=== PATIENT | female | born 1985 | race Caucasian/White ===

== ENCOUNTER 2018-11-27 12:28 | Emergency (ER) | payer MEDICAID, OTHER ==
[~2018-11-27] VITALS: Wt 109.0 kg
[2018-11-27 12:45] VITALS: BP 133/72; PULSE 89; RESP 16
[2018-11-27] MEDS ORDERED: GABA-528 PO (13:19)
--- NOTE | 2018-11-27 18:36 | ERD ---
ER Documentation Chief Complaint Chief Complaint VANG, hx migraines. needs gabapentin refill; takes 800mg TID HPI 33-year-old female patient with no significant past medical history presents to ED encounter for medication refill. Patient reports that she usually takes it for her migraine headaches. Denies any fever, chills, nausea, vomiting, diarrhea, neck stiffness. ROS All systems reviewed and are negative except as per history of present illness. Medications Home Meds Active Scripts Gabapentin* (Gabapentin*) 800 Mg Tablet, 800 MG PO TID, #21 TAB Prov:RICHARD FAJARDO PA-C 11/27/18 Allergies Allergies: Coded Allergies: No Known Allergy (Unverified , 07/21/14) PMhx/Soc Medical and Surgical Hx: pt denies Surgical Hx History of Surgery: No Anesthesia Reaction: No Hx Neurological Disorder: Yes (MIGRAINE HEADACHE) Hx Respiratory Disorders: No Hx Cardiac Disorders: No Hx Psychiatric Problems: No Hx Miscellaneous Medical Probl: No Hx Alcohol Use: No Hx Substance Use: No Hx Tobacco Use: No Smoking Status: Never smoker Physical Exam Vitals Physical Exam Const: [id number], well-nourished. In no acute distress. Head: Atraumatic, normocephalic Eyes: Normal Conjunctiva without injection ENT: Normal external ear, nose and mouth. Neck: Full range of motion. No meningismus. Resp: Clear to auscultation bilaterally. No wheezing, rhonchi, rales, or crackles. No accessory muscle use. No retractions. Cardio: Regular rate and rhythm, no murmurs Skin: No petechiae or rashes Back: No midline tenderness. No CVA tenderness. Ext: No cyanosis, or edema. Cap refill less than 2 seconds. Distal pulses intact bilaterally. Neur: Awake and alert. Normal gait and coordination. Muscle strength 5/5. Sensation intact bilaterally. Psych: Normal Mood and Affect Procedures/MDM 33-year-old female patient is here for a medication refill for gabapentin. Patient is afebrile and nontoxic-appearing. Low suspicion for acute myocardial infarction, pneumothorax, pericarditis, myocarditis, endocarditis, pneumonia, cardiac tamponade, pulmonary embolism, pleural effusion, AAA, aortic dissection, Boerhaave's syndrome, cardiac dysrhythmias,meningitis, intracranial bleed, seizure, stroke, TIA or other emergent conditions. Diagnosis: Encounter for medication refill Discharge medications: Gabapentin Follow up with primary care physician in 1-2 days. Instructed patient to return to the ED sooner for any worsening symptoms. Patient's questions were answered. Patient is hemodynamically stable. Patient understood and agreed with discharge plan. Patient discharged stable. Disclaimer: Inadvertent spelling and grammatical errors are likely due to EHR/dictation software use and do not reflect on the overall quality of patient care. Also, please note that the electronic time recorded on this note does not necessarily reflect the actual time of the patient encounter. Departure Diagnosis: Primary Impression: Encounter for medication refill Condition: Stable Patient Instructions: Taking Medicine Safely, Preventing Migraine Headaches: Triggers, Preventing Migraine Headaches: Medications and Lifestyle Changes Referrals: [facility] YOU HAVE RECEIVED A MEDICAL SCREENING EXAM AND THE RESULTS INDICATE THAT YOU DO NOT HAVE A CONDITION THAT REQUIRES URGENT TREATMENT IN THE EMERGENCY DEPARTMENT. FURTHER EVALUATION AND TREATMENT OF YOUR CONDITION CAN WAIT UNTIL YOU ARE SEEN IN YOUR DOCTORS OFFICE WITHIN THE NEXT 1-2 DAYS. IT IS YOUR RESPONSIBILITY TO MAKE AN APPOINTMENT FOR FOLOW-UP CARE. IF YOU HAVE A PRIMARY DOCTOR --you should call your primary doctor and schedule an appointment IF YOU DO NOT HAVE A PRIMARY DOCTOR YOU CAN CALL OUR PHYSICIAN REFERRAL HOTLINE AT IF YOU CAN NOT AFFORD TO SEE A PHYSICIAN YOU CAN CHOSE FROM THE FOLLOWING [facility] [address] [facility]. [facility] [address] [facility] [address] [facility] [facility] [address] [facility] [address] [facility]. [facility]. [address] [facility]. [facility] YOU HAVE RECEIVED A MEDICAL SCREENING EXAM AND THE RESULTS INDICATE THAT YOU DO NOT HAVE A CONDITION THAT REQUIRES URGENT TREATMENT IN THE EMERGENCY DEPARTMENT. FURTHER EVALUATION AND TREATMENT OF YOUR CONDITION CAN WAIT UNTIL YOU ARE SEEN IN YOUR DOCTORS OFFICE WITHIN THE NEXT 1-2 DAYS. IT IS YOUR RESPONSIBILITY TO MAKE AN APPOINTMENT FOR FOLOW-UP CARE. IF YOU HAVE A PRIMARY DOCTOR --you should call your primary doctor and schedule and appointment IF YOU DO NOT HAVE A PRIMARY DOCTOR YOU CAN CALL OUR PHYSICIAN REFERRAL HOTLINE AT . IF YOU CAN NOT AFFORD TO SEE A PHYSICIAN YOU CAN CHOSE FROM THE FOLLOWING [facility] INSTITUTIONS: [facility] [place] [address] [place] [address] [facility] [address] [place] [address] [facility] [address] [place] [address] [facility] URGENT CARE/SPECIALTIES Additional Instructions: Call your primary care doctor TOMORROW for an appointment during the next 2-3 days.See the doctor sooner or return here if your condition worsens before your appointment time. RICHARD FAJARDO PA-C Nov 27, 2018 18:36
== END 2018-11-27 13:35 | disposition home or self-care (01) ==
LOC: FTE 12:28
DX: Z76.0 Encounter for issue of repeat prescription (principal)
CPT/HCPCS: 99281

== ENCOUNTER 2018-12-31 12:25 | Emergency (ER) | payer OTHER ==
[~2018-12-31] VITALS: Ht 167.6 cm; Wt 108.0 kg
[~2018-12-31 12:25] MED LIST: GABA-528 PO
[2018-12-31 12:29] VITALS: BP 139/70; PULSE 89; RESP 18; Ht 167.6 cm; Wt 108.0 kg
[2018-12-31] MEDS ORDERED: GABA-526 PO (13:15)
--- NOTE | 2018-12-31 13:18 | ERD ---
ER Documentation Chief Complaint Chief Complaint HEADCAHE SINCE YESTERDAY ROS All systems reviewed and are negative except as per history of present illness. Medications Home Meds Active Scripts Gabapentin* (Gabapentin*) 600 Mg Tablet, 600 MG PO TID, #90 TAB Prov:BHARGAV LOPEZ MD 12/31/18 Gabapentin* (Gabapentin*) 800 Mg Tablet, 800 MG PO TID, #21 TAB Prov:RICHARD FAJARDO PA-C 11/27/18 Allergies Allergies: Coded Allergies: No Known Allergy (Unverified , 07/21/14) PMhx/Soc Medical and Surgical Hx: pt denies Surgical Hx History of Surgery: No Anesthesia Reaction: No Hx Neurological Disorder: Yes (MIGRAINE HEADACHE) Hx Respiratory Disorders: No Hx Cardiac Disorders: No Hx Psychiatric Problems: No Hx Miscellaneous Medical Probl: No Hx Alcohol Use: No Hx Substance Use: No Hx Tobacco Use: No Smoking Status: Never smoker Physical Exam Vitals Vital Signs Date Temp Pulse Resp B/P (MAP) Pulse Ox O2 O2 Flow FiO2 Time Delivery Rate 12/31/18 98.5 89 18 139/70 100 12:29 (93) Physical Exam Const: No acute distress Head: Atraumatic Eyes: Normal Conjunctiva ENT: Normal External Ears, Nose and Mouth. Neck: Full range of motion. No meningismus. Resp: Clear to auscultation bilaterally Cardio: Regular rate and rhythm, no murmurs Abd: Soft, non tender, non distended. Normal bowel sounds Skin: No petechiae or rashes Back: No midline or flank tenderness Ext: No cyanosis, or edema Neur: Awake and alert Psych: Normal Mood and Affect Departure Diagnosis: Primary Impression: Migraine headache Condition: Stable Patient Instructions: Migraines and Cluster Headaches [facility] YOU HAVE RECEIVED A MEDICAL SCREENING EXAM AND THE RESULTS INDICATE THAT YOU DO NOT HAVE A CONDITION THAT REQUIRES URGENT TREATMENT IN THE EMERGENCY DEPARTMENT. FURTHER EVALUATION AND TREATMENT OF YOUR CONDITION CAN WAIT UNTIL YOU ARE SEEN IN YOUR DOCTORS OFFICE WITHIN THE NEXT 1-2 DAYS. IT IS YOUR RESPONSIBILITY TO MAKE AN APPOINTMENT FOR FOLOW-UP CARE. IF YOU HAVE A PRIMARY DOCTOR --you should call your primary doctor and schedule an appointment IF YOU DO NOT HAVE A PRIMARY DOCTOR YOU CAN CALL OUR PHYSICIAN REFERRAL HOTLINE AT IF YOU CAN NOT AFFORD TO SEE A PHYSICIAN YOU CAN CHOSE FROM THE FOLLOWING [facility] [address] [facility] [address] [facility]. [facility] [address] [facility] [address] [facility]. [facility] [phone] [facility]. [facility] [address] Additional Instructions: Thank you very much for allowing us to participate in your care. Your health and safety is our top priority at [facility]. Call your primary care doctor TOMORROW for an appointment during the next 2-4 days and bring all the information and medications prescribed. Have prescriptions filled and follow precisely the directions on the label. If the symptoms get worse and your provider is unavailable, return to the Emergency Department immediately. BHARGAV LOPEZ MD Dec 31, 2018 13:18
== END 2018-12-31 13:26 | disposition home or self-care (01) ==
LOC: FTE 12:25
DX: G43.909 Migraine, unspecified, not intractable, without status migrainosus (principal)
CPT/HCPCS: 99283

== ENCOUNTER 2019-02-11 15:55 | Emergency (ER) | payer OTHER ==
[~2019-02-11] VITALS: Wt 102.7 kg
[~2019-02-11 15:55] MED LIST changes: +GABA-526 PO
[2019-02-11] MEDS ORDERED: GABA-528 PO (18:43)
--- NOTE | 2019-02-11 18:50 | ERD ---
ER Documentation Chief Complaint Chief Complaint needs gabapentin rx: hx migraine x12yr, has imitrex, ran out of gabapentin HPI 33-year-old female presenting with a migraine requesting a refill of her gabapentin that she has been taking for many years. She has Imitrex at home which has not been helping. She has not taken the gabapentin in the past 2 days. She states that her headache currently is her typical migraine but denies any vomiting, fevers, neck stiffness, photophobia or phonophobia. She does not want any treatment today. All she wants is a medication refill. Currently her headache is 7 out of 10, throbbing, nonradiating. ROS All systems reviewed and are negative except as per history of present illness. Medications Home Meds Active Scripts Gabapentin* (Gabapentin*) 800 Mg Tablet, 1200 MG PO TID, #40 TAB Prov:JAVIER VAZQUEZ MD 02/11/19 Gabapentin* (Gabapentin*) 600 Mg Tablet, 600 MG PO TID, #90 TAB Prov:BHARGAV LOPEZ MD 12/31/18 Gabapentin* (Gabapentin*) 800 Mg Tablet, 800 MG PO TID, #21 TAB Prov:RICHARD FAJARDO PA-C 11/27/18 Allergies Allergies: Coded Allergies: No Known Allergy (Unverified , 07/21/14) PMhx/Soc History of Surgery: Yes (, bilateral wrist) Anesthesia Reaction: No Hx Neurological Disorder: Yes (MIGRAINE HEADACHE) Hx Respiratory Disorders: No Hx Cardiac Disorders: No Hx Psychiatric Problems: No Hx Miscellaneous Medical Probl: No Hx Alcohol Use: Yes (Occasional) Hx Substance Use: No Hx Tobacco Use: Yes Smoking Status: Current some day smoker FmHx Family History: No diabetes Physical Exam Vitals Vital Signs Date Temp Pulse Resp B/P (MAP) Pulse Ox O2 O2 Flow FiO2 Time Delivery Rate 02/11/19 98.1 78 12 147/68 95 16:18 (94) Physical Exam Const: No acute distress Head: Atraumatic Eyes: Normal Conjunctiva. PERRLA, EOMI ENT: Normal External Ears, Nose and Mouth. Neck: Full range of motion. No meningismus. Resp: Clear to auscultation bilaterally Cardio: Regular rate and rhythm, no murmurs Ext: No cyanosis, or edema Neur: Awake and alert, oriented, normal speech, no facial asymmetry, moving all extremities spontaneously, normal gait Psych: Normal Mood and Affect Procedures/MDM Patient is presenting with her typical migraine. Do not suspect meningitis, intracranial bleed, seizure, stroke. Gabapentin prescription given. Told to follow-up with PCP for further refills. Return precautions given. Patient's blood pressure was elevated (>120/80) but appears stable without evidence of hypertension emergency or urgency. The patient was counseled about the risks of hypertension and urged to pursue outpatient monitoring and therapy within a week with their primary care physician. Departure Diagnosis: Primary Impression: Encounter for medication refill Additional Impression: Migraine headache Migraine type: unspecified Status migrainosus presence: without status mi grainosus Intractability: not intractable Qualified Codes: G43.909 - Migraine, unspecified, not intractable, without status migrainosus Condition: Stable Patient Instructions: Taking Medicine Safely, Headache, Migraine (Classical) Referrals: [facility] (PCP) JAVIER VAZQUEZ MD Feb 11, 2019 18:50
[2019-02-11 18:54] VITALS: BP 130/87; PULSE 76; RESP 14
== END 2019-02-11 18:54 | disposition home or self-care (01) ==
LOC: E/R 15:55
DX: Z76.0 Encounter for issue of repeat prescription (principal); G43.909 Migraine, unspecified, not intractable, without status migrainosus; F17.210 Nicotine dependence, cigarettes, uncomplicated
CPT/HCPCS: 99281

== ENCOUNTER 2019-03-10 13:48 | Emergency (ER) | payer OTHER ==
[~2019-03-10] VITALS: Ht 172.7 cm; Wt 102.6 kg
[2019-03-10 13:49] VITALS: BP 136/86; PULSE 74; RESP 18; Ht 172.7 cm; Wt 102.6 kg
[2019-03-10] MEDS ORDERED: GABA-526 PO (16:00)
--- NOTE | 2019-03-11 12:16 | ERD ---
ER Documentation Chief Complaint Chief Complaint Migraine VANG X 2 days HPI 33-year-old female patient with a past medical history of migraines presents to the ED stating that she would like a refill for her gabapentin. States that she takes 600 mg 3 times daily. Denies any chest pain, shortness of breath, nausea, vomiting, head injuries. Denies any neck stiffness, fever. Patient reports that she had a gradual onset of diffuse frontal headache about 2 days ago. Describes as a pressure sensation in rates it a 6 out of 10. ROS All systems reviewed and are negative except as per history of present illness. Medications Home Meds Active Scripts Gabapentin* (Gabapentin*) 600 Mg Tablet, 600 MG PO TID, #90 TAB Prov:RICHARD FAJARDO PA-C 03/10/19 Gabapentin* (Gabapentin*) 800 Mg Tablet, 1200 MG PO TID, #40 TAB Prov:JAVIER VAZQUEZ MD 02/11/19 Gabapentin* (Gabapentin*) 600 Mg Tablet, 600 MG PO TID, #90 TAB Prov:BHARGAV LOPEZ MD 12/31/18 Gabapentin* (Gabapentin*) 800 Mg Tablet, 800 MG PO TID, #21 TAB Prov:RICHARD FAJARDO PA-C 11/27/18 Allergies Allergies: Coded Allergies: No Known Allergy (Unverified , 03/10/19) PMhx/Soc History of Surgery: Yes (, bilateral wrist) Anesthesia Reaction: No Hx Neurological Disorder: Yes (MIGRAINE HEADACHE) Hx Respiratory Disorders: No Hx Cardiac Disorders: No Hx Psychiatric Problems: No Hx Miscellaneous Medical Probl: No Hx Alcohol Use: Yes (Occasional) Hx Substance Use: No Hx Tobacco Use: Yes Smoking Status: Never smoker FmHx Family History: No diabetes, No coronary disease Physical Exam Vitals Vital Signs Date Temp Pulse Resp B/P (MAP) Pulse Ox O2 O2 Flow FiO2 Time Delivery Rate 03/10/19 98.5 74 18 136/86 98 13:49 (103) Physical Exam Const: [id number], well-nourished. In no acute distress. Head: Atraumatic, normocephalic. There are no hematoma. No stanford sign. Eyes: Normal Conjunctiva without injection. No purulent discharge. PERRLA. EOMI ENT: Normal external ear. Ear canal without erythema. Tympanic membrane pearly ortiz without effusion or bulging. No hemotympanum. Nasal canal clear with normal turbinates. Moist oropharynx without tonsillar exudates. Non-erythematous pharynx. Uvula midline. No drooling. No trismus. Neck: No cervical midline tenderness. Full range of motion. No meningismus. No cervical lymphadenopathy. No JVD. Resp: Clear to auscultation bilaterally. No wheezing, rhonchi, rales, or crackles. No accessory muscle use. No retractions. Cardio: Regular rate and rhythm. No murmurs, rubs or gallops. Abd: Soft, non tender, non distended. Normal bowel sounds. No palpable masses. No rebound tenderness. No guarding. Negative McBurney's Point. Negative Willingham's Sign. Skin: Normal skin turgor. No petechiae or rashes Back: No midline tenderness. No CVA tenderness. Ext: No cyanosis, or edema. Distal pulses intact bilaterally. Neur: Awake and alert. Normal gait. Normal coordination. Cranial Nerves II- VII intact. Normal finger to nose. Muscle strength 5/5. Sensation intact. Psych: Normal Mood and Affect Procedures/MDM 33-year-old female patient with past medical history of migraines presents the ED for a headache that started 2 days ago and would like a refill for gabapentin. Patient is afebrile and nontoxic-appearing. Patient reports that she did not want any medications here in the ED, states that gabapentin does work for her migraines. I strictly instructed patient to follow-up with her primary care physician as I will refill patient's medication here. Patient is neurologically intact. Patient did not sustain any head injuries. Low suspicion for intracranial bleed, subarachnoid hemorrhage, meningitis, TIA, stroke, subdural hematoma, epidural hematoma, or other emergent conditions. Diagnosis: Encounter for medication refill Discharge medications: Gabapentin Follow up with primary care physician in 1-2 days. Instructed patient to return to the ED sooner for any worsening symptoms. Patient's questions were answered. Patient is hemodynamically stable. Patient understood and agreed with discharge plan. Patient discharged stable. Disclaimer: Inadvertent spelling and grammatical errors are likely due to EHR/dictation software use and do not reflect on the overall quality of patient care. Also, please note that the electronic time recorded on this note does not necessarily reflect the actual time of the patient encounter. Departure Diagnosis: Primary Impression: Encounter for medication refill Condition: Stable Patient Instructions: Taking Medication Safely, Migraine Headache: Stages and Treatment Referrals: [facility] YOU HAVE RECEIVED A MEDICAL SCREENING EXAM AND THE RESULTS INDICATE THAT YOU DO NOT HAVE A CONDITION THAT REQUIRES URGENT TREATMENT IN THE EMERGENCY DEPARTMENT. FURTHER EVALUATION AND TREATMENT OF YOUR CONDITION CAN WAIT UNTIL YOU ARE SEEN IN YOUR DOCTORS OFFICE WITHIN THE NEXT 1-2 DAYS. IT IS YOUR RESPONSIBILITY TO M DEBBIE AN APPOINTMENT FOR FOLOW-UP CARE. IF YOU HAVE A PRIMARY DOCTOR --you should call your primary doctor and schedule an appointment IF YOU DO NOT HAVE A PRIMARY DOCTOR YOU CAN CALL OUR PHYSICIAN REFERRAL HOTLINE AT IF YOU CAN NOT AFFORD TO SEE A PHYSICIAN YOU CAN CHOSE FROM THE FOLLOWING [facility] [address] [facility] [address] [facility] [address] [facility] [address] [facility] [address] [facility] [address] [facility]. [facility] [address] [facility]. [facility] YOU HAVE RECEIVED A MEDICAL SCREENING EXAM AND THE RESULTS INDICATE THAT YOU DO NOT HAVE A CONDITION THAT REQUIRES URGENT TREATMENT IN THE EMERGENCY DEPARTMENT. FURTHER EVALUATION AND TREATMENT OF YOUR CONDITION CAN WAIT UNTIL YOU ARE SEEN IN YOUR DOCTORS OFFICE WITHIN THE NEXT 1-2 DAYS. IT IS YOUR RESPONSIBILITY TO MAKE AN APPOINTMENT FOR FOLOW-UP CARE. IF YOU HAVE A PRIMARY DOCTOR --you should call your primary doctor and schedule and appointment IF YOU DO NOT HAVE A PRIMARY DOCTOR YOU CAN CALL OUR PHYSICIAN REFERRAL HOTLINE AT . IF YOU CAN NOT AFFORD TO SEE A PHYSICIAN YOU CAN CHOSE FROM THE FOLLOWING [facility] INSTITUTIONS: [facility] [address] [place] [address] [facility] [address] [place] [address] [facility] [place] [address] [place] [address] [facility] URGENT CARE/SPECIALTIES [facility] Additional Instructions: Call your primary care doctor TOMORROW for an appointment during the next 2-3 days.See the doctor sooner or return here if your condition worsens before your appointment time. RICHARD FAJARDO PA-C Mar 11, 2019 12:16
== END 2019-03-10 16:06 | disposition home or self-care (01) ==
LOC: FTE 13:48
DX: Z76.0 Encounter for issue of repeat prescription (principal)
CPT/HCPCS: 99281

== ENCOUNTER 2019-04-21 10:54 | Emergency (ER) | payer OTHER ==
[~2019-04-21] VITALS: Ht 165.1 cm; Wt 101.5 kg
[2019-04-21 11:01] VITALS: Ht 165.1 cm; Wt 101.5 kg
[2019-04-21] MEDS ORDERED: ONDA4TAB14 PO (12:14)
[2019-04-21] MEDS ORDERED: GABA-526 PO (12:14)
--- NOTE | 2019-04-21 12:21 | ERD ---
ER Documentation Chief Complaint Chief Complaint headache x 2 days , h/o mograine HPI Patient is a 33-year-old female, past medical history of migraine headaches, presents the ER for concerns of headache x2 days. Patient states her headache feels like her previous headaches. Patient states she takes gabapentin is ran out of this medication. Patient is here requesting refill. She states all she needs is her gabapentin and a "dark room" and her migraine will improve. Patient reports associated nausea which she did take Zofran for at home. Patient states she is also running out of her Zofran is requesting refill. Patient reports associated photophobia and phonophobia. Patient denies any fevers or chills. Patient denies any neck pain or neck stiffness. No recent travel. No falls or trauma. ROS All systems reviewed and are negative except as per history of present illness. Medications Home Meds Active Scripts Ondansetron (Ondansetron Odt) 4 Mg Tab.rapdis, 4 MG PO Q6H PRN for NAUSEA AND/OR VOMITING, #10 TAB Prov:ALEXA WARD PA-C 04/21/19 Gabapentin* (Gabapentin*) 600 Mg Tablet, 600 MG PO TID, #90 TAB Prov:ALEXA WARD PA-C 04/21/19 Gabapentin* (Gabapentin*) 600 Mg Tablet, 600 MG PO TID, #90 TAB Prov:RICHARD FAJARDO PA-C 03/10/19 Gabapentin* (Gabapentin*) 800 Mg Tablet, 1200 MG PO TID, #40 TAB Prov:JAVIER VAZQUEZ MD 02/11/19 Gabapentin* (Gabapentin*) 600 Mg Tablet, 600 MG PO TID, #90 TAB Prov:BHARGAV LOPEZ MD 12/31/18 Gabapentin* (Gabapentin*) 800 Mg Tablet, 800 MG PO TID, #21 TAB Prov:RICHARD FAJARDO PA-C 11/27/18 Allergies Allergies: Coded Allergies: No Known Allergy (Unverified , 03/10/19) PMhx/Soc History of Surgery: Yes (, bilateral wrist) Anesthesia Reaction: No Hx Neurological Disorder: Yes (MIGRAINE HEADACHE) Hx Respiratory Disorders: No Hx Cardiac Disorders: No Hx Psychiatric Problems: No Hx Miscellaneous Medical Probl: No Hx Alcohol Use: Yes (Occasional) Hx Substance Use: No Hx Tobacco Use: Yes Smoking Status: Current some day smoker FmHx Family History: No diabetes Physical Exam Vitals Vital Signs Date Temp Pulse Resp B/P (MAP) Pulse Ox O2 O2 Flow FiO2 Time Delivery Rate 04/21/19 98.1 80 18 138/67 100 11:01 (90) Physical Exam GENERAL: Well-developed, well-nourished female. Appears in no acute distress. HEAD: Normocephalic, atraumatic. EYES: Pupils are equally reactive bilaterally. EOMs grossly intact. No conjunctival erythema. ENT: Moist mucous membranes. No uvula deviation. No kissing tonsils. NECK: Supple. No meningismus. Normal range of motion of the neck. LUNG: Clear to auscultation bilaterally. No rhonchi, wheezing, rales or coarse breath sounds. HEART: Regular rate and rhythm. No murmurs, rubs or gallops. EXTREMITIES: Equal pulses bilaterally. No peripheral clubbing, cyanosis or edema. No unilateral leg swelling. NEUROLOGIC: Alert and oriented x3, cooperative. Mood and affect appropriate to situation. Cranial nerves II through XII are grossly intact. Normal speech. Motor exam: 5/5 strength in upper and lower extremities. Sensory exam: Sensation intact to light touch on all four extremities. Cerebellar function exam: Rapid alternating movements intact. No dysmetria on ebjhck-fi-xder and hppl-uv-jdqm test. Steady gait. No pronator drift. Equal tow feeder strength noted bilaterally. SKIN: Normal color. Warm and dry. No rashes or lesions. Procedures/MDM MEDICAL DECISION MAKING: Patient is a 33-year-old male with past medical history migraine headaches who presents the ER for concerns of the medication refill. Patient states she takes gabapentin for pain and is needing a refill. Patient also requesting refill of Zofran. Patient states that her current migraine does feel like previous migraine headaches. Patient denies any sudden, worsening pain. Vital signs were reviewed. Patient is afebrile. Patient was not hypoxic. Patient was hemodynamically stable. Patient's neuro exam was normal. Patient will be a refill of gabapentin and Zofran advised to follow-up with her primary care physician for any additional refills. Low suspicion for TIA, CVA, intracranial hemorrhage, skull fracture, CO2 poisoning, meningitis, encephalitis, benign intracranial hypertension. PRESCRIPTION: Gabapentin, Zofran DISCHARGE: At this time, patient is stable for discharge and outpatient management. I have instructed the patient to follow-up with his/her primary care physician in 1-2 days. I have discussed with the patient the possibility of needing to see a specialist for further workup and imaging studies if symptoms persist. I have instructed the patient to promptly return to the ER for any new or worsening symptoms including increased pain, fever, nausea, vomiting, weakness or LOC. The patient and/or family expressed understanding of and agreement with this plan. All questions were answered. Home care instructions were provided. Disclaimer: Inadvertent spelling and grammatical errors are likely due to EHR/dictation software use and do not reflect on the overall quality of patient care. Also, please note that the electronic time recorded on this note does not necessarily reflect the actual time of the patient encounter. Departure Diagnosis: Primary Impression: Encounter for medication refill Additional Impression: Migraine headache Migraine type: unspecified Status migrainosus presence: without status migrainosus Intractability: not intractable Qualified Codes: G43.909 - Migraine, unspecified, not intractable, without status migrainosus Condition: Stable Patient Instructions: Taking Medicine Safely Referrals: [facility] (PCP) Additional Instructions: Call your primary care doctor TOMORROW for an appointment during the next 1-2 days.See the doctor sooner or return here if your condition worsens before your appointment time. ALEXA WARD PA-C Apr 21, 2019 12:21
[2019-04-21 12:23] VITALS: BP 138/71; PULSE 80; RESP 16
== END 2019-04-21 12:24 | disposition home or self-care (01) ==
LOC: FTE 10:54
DX: G43.909 Migraine, unspecified, not intractable, without status migrainosus (principal); F17.210 Nicotine dependence, cigarettes, uncomplicated
CPT/HCPCS: 99283

== ENCOUNTER 2019-05-03 17:55 | Emergency (ER) | payer OTHER ==
[~2019-05-03] VITALS: Ht 165.1 cm; Wt 102.5 kg
[~2019-05-03 17:55] MED LIST changes: +ONDA4TAB14 PO
[2019-05-03 18:36] VITALS: BP 139/68; PULSE 74; RESP 18; Ht 165.1 cm; Wt 102.5 kg
--- NOTE | 2019-05-03 20:16 | ERD ---
ER Documentation Chief Complaint Chief Complaint DYSURIA, FREQUENCY X'S 2 DAYS HPI This a 33-year-old female who presents here to emerge department with complaints of dysuria, urinary frequency for about 2 days. LMP: Stated that she just ended it. G1, . Denies headache, head injury, loss of consciousness, dizziness, neck pain, neck stiffness, throat pain, difficulty swallowing, difficulty breathing lying flat, shoulder pain, chest pain, back pain, abdominal pain, nausea, vomiting, constipation, diarrhea, or possibility being , loss of bowel and bladder control, trauma, injury, falls, difficulty walking due to pain, numbness or tingling sensation, calf pain, recent travel, recent major surgery in the last 3 weeks, calf pain, recent long travel, recent exposure to any illness, recent antibiotic use in the last 3 months, fever, chills, seizures. Past medical history: Migraines. Surgical history: x1. Social: Denies smoking, use of alcoholic beverages, use of illegal drugs. ROS All systems reviewed and are negative except as per history of present illness. Medications Home Meds Active Scripts Cephalexin* (Keflex*) 500 Mg Capsule, 500 MG PO TID for 7 Days, CAP Prov:PASILABANYOGESHAR F 05/03/19 Phenazopyridine Hcl* (Pyridium*) 200 Mg Tab, 200 MG PO TID PRN for URINARY PAIN, #6 TAB Prov:SUSIEILABANYOGESHAR F 05/03/19 Ondansetron (Ondansetron Odt) 4 Mg Tab.rapdis, 4 MG PO Q6H PRN for NAUSEA AND/OR VOMITING, #10 TAB Prov:ALEXA WARD PA-C 04/21/19 Gabapentin* (Gabapentin*) 600 Mg Tablet, 600 MG PO TID, #90 TAB Prov:ALEXA WARD PA-C 04/21/19 Gabapentin* (Gabapentin*) 600 Mg Tablet, 600 MG PO TID, #90 TAB Prov:RICHARD FAJARDO PA-C 03/10/19 Gabapentin* (Gabapentin*) 800 Mg Tablet, 1200 MG PO TID, #40 TAB Prov:JAVIER VAZQUEZ MD 02/11/19 Gabapentin* (Gabapentin*) 600 Mg Tablet, 600 MG PO TID, #90 TAB Prov:BHARGAV LOPEZ MD 12/31/18 Gabapentin* (Gabapentin*) 800 Mg Tablet, 800 MG PO TID, #21 TAB Prov:SCOTTYRICHARD Elizabeth ESPINOSA 11/27/18 Allergies Allergies: Coded Allergies: No Known Allergy (Unverified , 03/10/19) PMhx/Soc History of Surgery: Yes (, bilateral wrist) Anesthesia Reaction: No Hx Neurological Disorder: Yes (MIGRAINE HEADACHE) Hx Respiratory Disorders: No Hx Cardiac Disorders: No Hx Psychiatric Problems: No Hx Miscellaneous Medical Probl: No Hx Alcohol Use: Yes (Occasional) Hx Substance Use: No Hx Tobacco Use: Yes Smoking Status: Current every day smoker Physical Exam Vitals Vital Signs Date Temp Pulse Resp B/P (MAP) Pulse Ox O2 O2 Flow FiO2 Time Delivery Rate 05/03/19 99.0 74 18 139/68 98 18:36 (91) Physical Exam Const: No acute distress Head: Atraumatic Eyes: Normal Conjunctiva ENT: Normal External Ears, Nose and Mouth. Neck: Full range of motion. No meningismus. Resp: Clear to auscultation bilaterally Cardio: Regular rate and rhythm, no murmurs Abd: Soft, non tender, non distended. Normal bowel sounds. Negative [place] sign. Negative [place] sign (heel jar test). Negative psoas sign but negative Rovsing sign. Able to jump 5 times without developing lower abdominal pain. No CVA tenderness. Skin: No petechiae or rashes. Color appears normal for ethnicity. No skin tenting. No signs of severe dehydration. Back: No midline or flank tenderness. No CVA tenderness. Ext: No cyanosis, or edema Neur: Awake and alert. No neurological deficit. Psych: Normal Mood and Affect Results 24 hrs Laboratory Tests Test 05/03/19 20:15 05/03/19 20:20 Urine Color YELLOW Urine Clarity SLIGHTLY CLOUDY Urine pH 7.0 Urine Specific [place] 1.018 Urine Ketones NEGATIVE mg/dL Urine Nitrite NEGATIVE mg/dL Urine Bilirubin NEGATIVE mg/dL Urine Urobilinogen NEGATIVE mg/dL Urine Leukocyte Esterase 2+ Whit/ul Urine Microscopic RBC 28 /HPF Urine Microscopic WBC 95 /HPF Urine Squamous Epithelial Cells FEW /HPF Urine Bacteria FEW /HPF Urine Hemoglobin 1+ mg/dL Urine Glucose NEGATIVE mg/dL Urine Total Protein 1+ mg/dl Bedside Urine pH (LAB) 7.5 Bedside Urine Protein (LAB) 1+ Bedside Urine Glucose (UA) Negative Bedside Urine Ketones (LAB) Negative Bedside Urine Blood 1+ Bedside Urine Nitrite (LAB) Negative Bedside Urine Leukocyte Esterase (L 1+ POC Beta HCG, Qualitative NEGATIVE Procedures/MDM I offered blood works, renal ultrasound and or advanced imaging but patient strongly refused. Stated that she does not want to wait. Stated that she just wanted to be prescribed with a medication for her dysuria and UTI. Diagnostic tests: POC urine : Negative Urinalysis: UTI. Culture urine: Sent. Treatment: Refuses. Re-evaluation: Denies abdominal pain, back pain. Denies vaginal bleeding. No episode of emesis here in the emergency department. No CVA tenderness. No abdominal tenderness. Stated that she is comfortable going home. Differential diagnosis I have low suspicion for nephrolithiasis, pyelonephritis, obstructing kidney stones, septic stones. Final diagnosis: UTI. Dysuria. Prescription: Pyridium. Keflex. Follow-up with PCP in the next 24-48 hours. Come back here in the emergency department for any new symptoms or any worsening symptoms. All questions and concerns were answered. Patient and family members verbalized understanding and agreed with plan of care. Hemodynamically stable on discharge. Departure Diagnosis: Primary Impression: Dysuria Additional Impression: Urinary tract infection Condition: Stable Additional Instructions: Follow-up with PCP in the next 24-48 hours. Come back here in the emergency department for any new symptoms or any worsening symptoms. JIMMY ESQUEDA May 03, 2019 20:16
[2019-05-03] MEDS ORDERED: PHEN-538 PO (20:35)
[2019-05-03] MEDS ORDERED: CEPH-443 PO (20:37)
== END 2019-05-03 20:48 | disposition home or self-care (01) ==
LOC: FTE 17:55
DX: N39.0 Urinary tract infection, site not specified (principal); F17.210 Nicotine dependence, cigarettes, uncomplicated
CPT/HCPCS: 81001; 81025; 87086; Z7502; 81003; 99283

== ENCOUNTER 2019-06-10 11:59 | Emergency (ER) | payer OTHER ==
[~2019-06-10] VITALS: Ht 165.1 cm; Wt 100.4 kg
[~2019-06-10 11:59] MED LIST changes: +CEPH-443 PO; +PHEN-538 PO
[2019-06-10 12:00] VITALS: BP 150/85; PULSE 108; RESP 22; Ht 165.1 cm; Wt 100.4 kg
[2019-06-10] MEDS ORDERED: GABA800T PO (12:19)
--- NOTE | 2019-06-10 12:25 | ERD ---
ER Documentation Chief Complaint Chief Complaint migraine headache x2days with nausea; light sensitivity HPI 32-year-old female presents with a history of cluster headaches. This headache for the last 2 days. She has photophobia and global headache. She has no history of trauma, fevers, visual changes, vomiting, deficits. She takes gabapentin preventatively with good relief and she is requesting a refill. She is here with a child does not request any treatment here in the ER. She has had difficulty with primary care follow-up due to insurance reasons. ROS All systems reviewed and are negative except as per history of present illness. Medications Home Meds Active Scripts Gabapentin* (Neurontin*) 800 Mg Tablet, 1200 MG PO TID, #120 TAB Prov:SYLWIA KAUFMAN MD 06/10/19 Cephalexin* (Keflex*) 500 Mg Capsule, 500 MG PO TID for 7 Days, CAP Prov:PASILABAN,KLAR F 05/03/19 Phenazopyridine Hcl* (Pyridium*) 200 Mg Tab, 200 MG PO TID PRN for URINARY PAIN, #6 TAB Prov:SUSIEILABANYOGESHAR F 05/03/19 Ondansetron (Ondansetron Odt) 4 Mg Tab.rapdis, 4 MG PO Q6H PRN for NAUSEA AND/OR VOMITING, #10 TAB Prov:ALEXA WARD PA-C 04/21/19 Gabapentin* (Gabapentin*) 600 Mg Tablet, 600 MG PO TID, #90 TAB Prov:ALEXA WARD PA-C 04/21/19 Gabapentin* (Gabapentin*) 600 Mg Tablet, 600 MG PO TID, #90 TAB Prov:RICHARD FAJARDO PA-C 03/10/19 Gabapentin* (Gabapentin*) 800 Mg Tablet, 1200 MG PO TID, #40 TAB Prov:JAVIER VAZQUEZ MD 02/11/19 Gabapentin* (Gabapentin*) 600 Mg Tablet, 600 MG PO TID, #90 TAB Prov:BHARGAV LOPEZ MD 12/31/18 Gabapentin* (Gabapentin*) 800 Mg Tablet, 800 MG PO TID, #21 TAB Prov:RICHARD FAJARDO PA-C 11/27/18 Allergies Allergies: Coded Allergies: No Known Allergy (Unverified , 03/10/19) PMhx/Soc History of Surgery: Yes (, bilateral wrist) Anesthesia Reaction: No Hx Neurological Disorder: Yes (MIGRAINE HEADACHE) Hx Respiratory Disorders: No Hx Cardiac Disorders: No Hx Psychiatric Problems: No Hx Miscellaneous Medical Probl: No Hx Alcohol Use: Yes (Occasional) Hx Substance Use: No Hx Tobacco Use: Yes Smoking Status: Never smoker Physical Exam Vitals Vital Signs Date Temp Pulse Resp B/P (MAP) Pulse Ox O2 O2 Flow FiO2 Time Delivery Rate 06/10/19 98.8 108 22 150/85 99 12:00 (106) Physical Exam Const: No acute distress Head: Atraumatic Eyes: Normal Conjunctiva. Eyes Aaron. ENT: Normal External Ears, Nose and Mouth. Neck: Full range of motion. No meningismus. Resp: Clear to auscultation bilaterally Cardio: Regular rate and rhythm, no murmurs Abd: Soft, non tender, non distended. Normal bowel sounds Skin: No petechiae or rashes Back: No midline or flank tenderness Ext: No cyanosis, or edema Neur: Awake and alert Psych: Normal Mood and Affect Procedures/MDM Patient presents with acute on chronic cluster headaches without signs of neurologic deficit, meningitis, additional concerning signs or symptoms. She will be given a refill on her gabapentin with recommendations for primary care follow-up and return precautions. The patient was stable with no new complaints during the ER course. Clinically, there is no current evidence to suggest meningitis, sepsis, acute abdomen, pneumonia, stroke, acute coronary syndrome, pulmonary embolism, aortic dissection or any other emergent condition appearing to require further evaluation or hospitalization. Patient counseled regarding my diagnostic impression and care plan. Prior to discharge all questions answered. Pt agrees with treatment plan and understands strict return precautions. Pt is instructed to follow up with primary care provider within 24- 48 hours. Precautionary instructions provided including instructions to return to the ER if not improving or for any worsening or changing symptoms or concerns. The patient's blood pressure was elevated (>120/80) but appears stable without evidence of hypertension emergency or urgency. The patient was counseled about the risks of hypertension and urged to pursue outpatient monitoring and therapy within a week with their primary care physician. I discussed the findings with the patient. I advised the patient to follow-up with the primary physician in about 1-2 days, sooner if needed and return if any concern. Disclaimer: Inadvertent spelling and grammatical errors are likely due to EHR/dictation software use and do not reflect on the overall quality of patient care. Also, please note that the electronic time recorded on this note does not necessarily reflect the actual time of the patient encounter. Departure Diagnosis: Primary Impression: Elevated blood pressure reading Additional Impression: Headache Headache type: unspecified Headache chronicity pattern: unspecified pattern Intractability: not intractable Qualified Codes: R51 - Headache Condition: Stable Patient Instructions: Self-Care for Headaches, Hypertension, To Be Confirmed, Headache, Cluster Referrals: [facility] (PCP) Additional Instructions: See primary doctor for follow-up. Recheck otherwise for new or worsening symptoms. SYLWIA KAUFMAN MD Jun 10, 2019 12:25
== END 2019-06-10 12:39 | disposition home or self-care (01) ==
LOC: FTE 11:59
DX: R03.0 Elevated blood-pressure reading, without diagnosis of hypertension (principal); Z76.0 Encounter for issue of repeat prescription
CPT/HCPCS: 99281